=== PATIENT | female | born 1980 | race Caucasian/White ===

== ENCOUNTER 2016-05-30 05:49 | Emergency (ER) | payer BC ==
[2016-05-30 06:08] VITALS: BP 122/70
[2016-05-30] MEDS ORDERED: KETOROLAC TROMETHAMINE 60 MG/2 ML VIAL IM ONE ×2 (06:33→06:47)
--- NOTE | 2016-05-30 06:45 | ERNOTE ---
Medical Problem HPI - General Chief Complaint: General Assessment Time Seen by Provider: 05/30/16 06:19 Source: patient, family Exam Limitations: no limitations - Immun/Allergies/Home Medications Immunizations: IMMUNIZATION HX Immunizations Up to Date Yes History of Influenza Vaccine No Hx Pneumococcal Vaccination No Allergies/Adverse Reactions: Allergies latex Allergy (Verified 05/07/14 06:27) Home Medications: HOME MEDICATIONS Ibuprofen [Motrin] 600 mg PO Q6H PRN #60 tablet 05/10/14 [Last Taken Unknown] Amoxicillin Trihydrate [Amoxil] 500 mg PO Q12H 05/30/16 [Last Taken Unknown] Naproxen [Naprosyn] 500 mg PO BID PRN #60 tab 05/30/16 [Last Taken Unknown] Norgestimate-Ethinyl Estradiol [Sprintec] 1 each PO DAILY 05/30/16 [Last Taken Unknown] - History of Present History Narrative: Pt began to have sore joints begining with her knees 5 days ago this progressed to include her ankles and elbows. This is accompanied by erythematous nodules over these joints. She was diagnosed with Strep on Saturday and given amoxicillin. She continues to worsen, she is taking OTC ibuprofen with minimal results Timing: constant, getting worse Severity: moderate, severe Modifying Factors - (Worsens): Present: movement Review of Systems - Review of Systems Constitutional: Present: recent illness, fatigue, malaise. Absent: fever EYE: Present: no symptoms reported ENT: Absent: sore throat Respiratory: Absent: shortness of breath, cough Cardiology: Absent: chest pain, palpitations Gastrointestinal/Abdominal: Present: no symptoms reported Genitourinary: Present: no symptoms reported Musculoskeletal: Present: See HPI, joint pain, joint swelling Skin: Present: lesions, lumps Neurological: Present: no symptoms reported Endocrine: Present: no symptoms reported Hematologic/Lymphatic: Present: no symptoms reported Psych: Present: no symptoms reported - Patient's Past Medical History Patient History - Medical: Other Patient History - Cardiac/Respiratory: No pertinent hx Patient History - Cancer: No Hx of Cancer Patient History - Surgical Procedures: Cholecystectomy, , Other Patient History - Other: None LMP (females 10-50): last week - Social History Living Situations: spouse Abuse History: No History of abuse Psych History: No pertinent hx Smoking Status: Never smoker Do you dip or chew tobacco: No Alcohol Use: none Drug Use: none - Immunizations Immunizations Up to Date: Yes Hx Pneumococcal Vaccination: No History of Influenza Vaccine: No Physical Exam - Physical Exam General Appearance: Present: wd/wn, alert, mild distress Eye Exam: Normal inspection: bilateral, PERRL: bilateral Ears, Nose, Throat: Present: pharyngeal erythema - minimal Neck: Present: normal inspection, nontender Respiratory: Present: no respiratory distress, normal breath sounds, no accessory muscle use, chest nontender, lungs clear Cardiovascular/Chest: Present: regular rate, rhythm, no murmur, normal peripheral pulses Extremity Exam: Present: no edema, joint redness - Erythematous nodules on elboes knees and shoulders bilateral. moderately tender Neurological Exam: Present: alert, oriented, normal mood/affect, no motor/ sensory deficits Skin Exam: Present: other - erythematous nodules over large joints Lymphatic Exam: Present: no adenopathy ED Progress - Results and Orders Patient's Lab Results:: I have reviewed the patient's lab results. Results and Orders: Laboratory Tests 05/30/16 05/30/16 05/30/16 06:50 06:50 06:50 WBC 7.7 Hgb 12.9 Hct 38.3 Plt Count 272 ESR 37 H Sodium 141 Potassium 3.9 Chloride 105 Carbon Dioxide 27.2 BUN 14 Creatinine 0.91 Random Glucose 113 H Calcium 8.9 C-Reactive Prot, Quant 11.7 H - Vital Signs Patient's Vital Signs:: I have reviewed the patient's vital signs. Vital Signs: Vital Signs 05/30/16 05:55 Temperature 38.6 C H Pulse Rate 98 Respiratory 14 Rate Blood Pressure 122/70 O2 Sat by Pulse 100 Oximetry - EKG EKG: NSR EKG read: Interp. by me - Progress/Reassessment Chief Complaint: General Assessment Progress:: Improved Departure - Departure Clinical Impression: Acute rheumatic fever Disposition: Home Follow Up Needed Condition: Fair Instructions: Rheumatic Fever, Pediatric Additional Instructions: See your regular doctor this week for follow up on labs sent out from the ER today. Echocardiogram is set up for 06/04/16 at 10:00 am here at [facility]. Referrals: Luna Eaton DO [Primary Care Provider] - Prescriptions: Naproxen [Naprosyn] 500 mg PO BID PRN #60 tab PRN Reason: Pain
[2016-05-30 06:56] LABS: Hematocrit 38.3 % (37.0-47.0); Hemoglobin 12.9 gm/dL (12.5-16.0); Mean Cell Volume 83.3 fl (78-100); Mean Corpuscular Hgb Conc 33.7 g/dl (32-36); Mean Platelet Volume 8.2 fl (6.0-9.5); Neutrophil # 5.5 K/mm3 (1.3-6.0); Neutrophil % 72.1 % (42-75.0); Platelet Count 272 K/mm3 (150-450); White Blood Count 7.7 K/mm3 (4.0-10.5)
[2016-05-30 07:16] LABS: Anion Gap 12.7 mmol/L (6.8-13.8); BUN/Creatinine Ratio 15.4 (9.0-21.6); Calcium * 8.9 mg/dL (7.9-10.9); Carbon Dioxide 27.2 mmol/L (24-32.6); Estimated Creat Clear 90.2; Potassium 3.9 mmol/L (3.4-4.6)
--- OUTSIDE RECORDS SUMMARY | 2016-05-30 07:20 | XMS REPORT | Continuity of Care Document ---
:1980 Author Organization [facility] ([facility]) Address [address] [place] [address] Phone [phone] Care Team Providers Name Role Phone Shmuel De La Torre Primary Care Provider [phone] Source Comments This disclosure is being made pursuant to the Care Everywhere program, applicable federal and state laws, and may not contain all informaitonavailable regarding this patient.[facility] ([facility]) Active Allergies and Adverse Reactions No Known Allergies Current Medications Prescription Sig. Disp. Refills Start Date End Date Status SPRINTEC tablet Take 1 Tab by mouth daily 08/20/2014 Active Active Problems Problem Noted Date Polycystic ovarian syndrome 09/05/2014 Other specified and placental problems affecting management of 2013 mother, antepartum Pancreatic pseudocyst 08/25/2013 Overview: TAIL LESION APPROX 6 cm H/O cholangitis 08/25/2013 S/P ERCP 08/25/2013 Overview: FOR CHOLANGITIS S/P laparoscopic cholecystectomy 08/25/2013 Overview: 07/27/13 with intra-operative cholangiogram History of acute pancreatitis 06/03/2013 Resolved Problems Problem Noted Date Resolved Date Hypokalemia 06/04/2013 08/25/2013 Hypophosphatemia 06/04/2013 08/25/2013 Hypomagnesemia 06/04/2013 08/25/2013 Hypocalcemia 06/04/2013 08/25/2013 Hypoalbuminemia 06/04/2013 08/25/2013 Ascending cholangitis 06/04/2013 08/25/2013 Fever 06/04/2013 08/25/2013 Social History Tobacco Use Types Packs/Day Years Used Date Never Smoker Smokeless Tobacco: Never Used Tobacco Cessation:Counseling Given: Yes Comments: Alcohol Use Drinks/Week oz/Week Comments No Last Filed Vital Signs Vital Sign Reading Time Taken Blood Pressure 132/74 08/31/2014 2:49 PM CDT Pulse 67 08/31/2014 2:49 PM CDT Temperature 36.9 C (98.4 F) 08/31/2014 2:49 PM CDT Respiratory Rate 16 06/09/2013 8:00 AM E [employer] Height 1.753 m (5' 9") 08/31/2014 2:49 PM CDT Weight 85.231 kg (187 lb 14.4 oz) 08/31/2014 2:49 PM CDT Body Mass Index 27.74 08/31/2014 2:49 PM CDT Oxygen Saturation 96% 06/09/2013 8:00 AM E [employer] Plan of Care Health Maintenance Due Date Last Done Comments Hepatitis B Vaccine (1 of 3 - Primary Series) 1980 Tdap Vaccine 11/27/1991 MMR Vaccine 1998 Td Vaccine 1998 Varicella Vaccine (1 of 2 - Adult - No Evidence of 1998 Immunity) Cervical Cancer Screening 2010 Influenza Vaccine: Seasonal (#1) 11/14/2015 Lipid Disorder Screening 06/04/2018 06/04/2013 Results from Last 3 Months Not on file
[2016-05-30 07:31] LABS: CRP 11.7 mg/dL (0.0-0.9)
== END 2016-05-30 08:25 | disposition home or self-care (01) ==
LOC: ER 05:49
DX: I00 Rheumatic fever without heart involvement (principal)

== ENCOUNTER 2017-04-12 09:55 | Emergency (ER) | payer BC ==
--- NOTE | 2017-04-12 10:22 | ERNOTE ---
Lower Extremity HPI - Narrative Date of Service: 04/12/17 - General Lower Extremities Pain: leg: left Time Seen by Provider: 04/12/17 10:20 Source: patient, RN notes reviewed Exam Limitations: no limitations - Immun/Allergies/Home Medications Immunizations: IMMUNIZATION HX Immunizations Up to Date Yes History of Influenza Vaccine No Hx Pneumococcal Vaccination No Allergies/Adverse Reactions: Allergies Allergy/AdvReac Type Severity Reaction Status Date / Time latex Allergy Verified 04/12/17 10:09 Home Medications: HOME MEDICATIONS Norgestimate-Ethinyl Estradiol [Sprintec] 1 each PO DAILY 05/30/16 [Last Taken Unknown] Apixaban [Eliquis] 5 mg PO BID #50 tablet 04/12/17 [Last Taken Unknown] Potassium Chloride [Klor-Con 10] 10 meq PO DAILY 04/12/17 [Last Taken Unknown] Torsemide 5 mg PO DAILY 04/12/17 [Last Taken Unknown] - History of Present Illness Narrative: 36 year old female presents to the ED from home for pain in her left leg that began the night before last without incident. She noticed the leg was swelling yesterday. The pain has continued to worsen. She took ibuprofen yesterday without improvement. She has no prior history of DVT, but did have a superficial thrombophlebitis after having an IV in her right arm. She has family members who have had DVTs but is not aware of any heredity coagulopathy. She is on an OCP. She is not a smoker. Date (Duration): 04/10/17 Method of Injury: Reports: no apparent injury Subsequent Symptoms: Denies: sensory loss, numbness, motor loss Prior Treament: Denies: similar symptoms before Review of Systems - Review of Systems Constitutional: Absent: recent illness, fever, chills EYE: Present: no symptoms reported ENT: Present: no symptoms reported Respiratory: Absent: shortness of breath, cough Cardiology: Present: edema. Absent: chest pain, palpitations, syncope Gastrointestinal/Abdominal: Absent: nausea, vomiting, abdominal pain Genitourinary: Absent: dysuria, hematuria Musculoskeletal: Present: muscle pain. Absent: joint pain, joint swelling Skin: Absent: rash, lesions, lumps, change in color Neurological: Absent: headache, dizziness/light-headedness, weakness, numbness, tingling Endocrine: Present: no symptoms reported Hematologic/Lymphatic: Absent: easy bruising, easy bleeding Psych: Present: no symptoms reported - Patient's Past Medical History Patient History - Medical: Other - Pancreatitis Patient History - Cardiac/Respiratory: No pertinent hx Patient History - Cancer: No Hx of Cancer Patient History - Surgical Procedures: Cholecystectomy, , Other Patient History - Other: None LMP (females 10-50): 2 wks ago - Social History Living Situations: home Abuse History: No History of abuse Psych History: No pertinent hx Smoking Status: Never smoker Alcohol Use: none Drug Use: none - Immunizations Immunizations Up to Date: Yes Hx Pneumococcal Vaccination: No History of Influenza Vaccine: No Physical Exam - Physical Exam General Appearance: Present: wd/wn, alert, no apparent distress Head Exam: Present: normal inspection, no evidence of injury Eye Exam: Normal inspection: bilateral Neck: Present: normal inspection, nontender, supple, full range of motion Respiratory: Present: no respiratory distress, normal breath sounds, no accessory muscle use, lungs clear Cardiovascular/Chest: Present: regular rate, rhythm, no murmur, normal peripheral pulses Extremity Exam: Present: normal range of motion, calf tenderness - Left, extremity edema - Left lower leg. Absent: pedal edema, joint redness, joint swelling Neurological Exam: Present: alert, oriented, normal mood/affect, no motor/ sensory deficits Skin Exam: Present: normal color, warm/dry ED Progress - Results and Orders Patient's Lab Results:: I have reviewed the patient's lab results. - Vital Signs Patient's Vital Signs:: I have reviewed the patient's vital signs. Vital Signs: Vital Signs 04/12/17 10:05 Temperature 36.9 C Pulse Rate 88 Respiratory 14 Rate Blood Pressure 122/79 O2 Sat by Pulse 97 Oximetry - CT/Ultrasound CT/Ultrasound Narrative: US Venous Ext Limited LT * The distal left femoral vein, popliteal vein, posterior tibial, and peroneal veins demonstrates no compression consistent with deep venous thrombosis. There is normal appearance of the left common femoral and greater saphenous veins as well as the proximal/mid segments of the femoral vein. In the area of the patient's pain in the calf, there is a potential distended vein within the gastrocnemius muscle suggestive of thrombosis and distention of the gastrocnemius vein. IMPRESSION: Positive for left lower extremity deep venous thrombosis involving the distal femoral vein, popliteal vein, gastrocnemius, and posterior tibial and peroneal veins. Ordering provider Flora Mejía was informed regarding the above results via telephone on 2016 12:30 PM. Electronically signed by Gamal Alvarado M.D.. - Progress/Reassessment Chief Complaint: Lower Extremity Pain/ Injury Progress:: Unchanged Departure Clinical Impression: Deep vein thrombophlebitis of left leg - Departure Disposition: Home Follow Up Needed Condition: Stable Instructions: Deep Vein Thrombosis Additional Instructions: Recheck with Dr. Eaton next week [facility] Referrals: Luna Eaton DO [Associate] - Prescriptions: Apixaban [Eliquis] 5 mg PO BID #50 tablet
[2017-04-12 10:58] LABS: Hematocrit 41.1 % (37.0-47.0); Hemoglobin 13.2 gm/dL (12.5-16.0); Mean Cell Volume 85.8 fl (78-100); Mean Corpuscular Hemoglobin 27.6 pg (27-31); Mean Corpuscular Hgb Conc 32.1 g/dl (32-36); Mean Platelet Volume 9.8 fl (6.0-9.5); Neutrophil # 6.1 K/mm3 (1.3-6.0); Neutrophil % 72.8 % (42-75.0); Platelet Count 252 K/mm3 (150-450); Red Blood Count 4.79 M/mm3 (4.2-5.4); Red Cell Distribution Width 13.1 % (11.5-14.0); White Blood Count 8.4 K/mm3 (4.0-10.5)
[2017-04-12 11:09] LABS: Albumin * 3.4 gm/dl (3.4-5.0); Anion Gap 11.5 mmol/L (6.8-13.8); BUN/Creatinine Ratio 13.6 (9.0-21.6); Bilirubin, Total 0.7 mg/dL (0.0-1.1); Ca. Corrected For Albumin 8.8 mg/dL (8.4-10.2); Calcium * 8.6 mg/dL (7.9-10.9); Potassium 4.5 mmol/L (3.4-4.6); Total Protein 7.3 gm/dL (6.2-8.2)
[2017-04-12 12:37] VITALS: BP 110/86
[2017-04-12] MEDS ORDERED: APIXABAN 2.5 MG TABLET PO ONE (13:15)
== END 2017-04-12 13:23 | disposition home or self-care (01) ==
LOC: ER 09:55
DX: I80.202 Phlebitis and thrombophlebitis of unspecified deep vessels of left lower extremity (principal)